=== PATIENT | female | born 1990 | race Caucasian/White ===

== ENCOUNTER 2018-09-26 21:39 | Emergency (ER) | payer OTHER ==
[~2018-09-26] VITALS: Ht 149.9 cm; Wt 86.0 kg
[2018-09-26 21:42] VITALS: BP 149/97
== END 2018-09-27 00:33 | disposition home or self-care (01) ==
LOC: EMS 21:39
DX: S90.861A Insect bite (nonvenomous), right foot, initial encounter (principal); S80.862A Insect bite (nonvenomous), left lower leg, initial encounter; L08.9 Local infection of the skin and subcutaneous tissue, unspecified; W57.XXXA Bitten or stung by nonvenomous insect and other nonvenomous arthropods, initial encounter; Y93.89 Activity, other specified; Y92.89 Other specified places as the place of occurrence of the external cause; Y99.8 Other external cause status

== ENCOUNTER 2019-09-27 15:42 | Emergency (ER) | payer OTHER ==
[~2019-09-27] VITALS: Ht 152.4 cm; Wt 86.4 kg
[2019-09-27 18:01] VITALS: BP 111/70
== END 2019-09-27 18:06 | disposition home or self-care (01) ==
LOC: EMS 15:43
DX: S50.861A Insect bite (nonvenomous) of right forearm, initial encounter (principal); L08.9 Local infection of the skin and subcutaneous tissue, unspecified; W57.XXXA Bitten or stung by nonvenomous insect and other nonvenomous arthropods, initial encounter; Y93.89 Activity, other specified; Y92.89 Other specified places as the place of occurrence of the external cause; Y99.8 Other external cause status